=== PATIENT | female | born 1985 | race Caucasian/White ===

== ENCOUNTER 2017-08-02 14:26 | Emergency (ER) | payer OTHER ==
[~2017-08-02] VITALS: Ht 160 cm; Wt 99.8 kg
[2017-08-02] MEDS ORDERED: IBUPROFEN 600600 M1 PO (17:59)
[2017-08-02] MEDS ORDERED: TOBRAMYCIN SULFA5 M1 OPHTHALMIC (17:59)
[2017-08-02 19:10] VITALS: BP 115/80
== END 2017-08-02 19:10 | disposition home or self-care (01) ==
LOC: ER 14:26
DX: S05.02XA Injury of conjunctiva and corneal abrasion without foreign body, left eye, initial encounter (principal); Y04.2XXA Assault by strike against or bumped into by another person, initial encounter; Y93.89 Activity, other specified; Y92.89 Other specified places as the place of occurrence of the external cause; Y99.8 Other external cause status